=== PATIENT | male | born 1995 | race African-American/Black ===

== ENCOUNTER 2023-02-21 01:27 | Emergency (ER) | payer SELFPAY ==
[2023-02-21 02:24] LABS: #Eosinphils 0.2 10x3/uL (0.0-0.5); #Monocytes 0.7 10x3/uL (0.0-1.1); #Neutrophils 2.6 10x3/uL (1.5-8.4); %Basophils 0.5 % (0.0-2.0); %Eosinophils 3.7 % (0.0-6.0); %Lymphocytes 42.5 % (18.0-47.0); %Monocytes 11.4 % (0.0-10.0); %Neutrophils 41.7 % (40.0-75.0); Hemoglobin 14.7 g/dL (13.5-17.5); Mean Corpuscular Hemoglobin 28.5 pg (27.0-33.0); Mean Corpuscular Volume 86.6 fl (81.2-95.1); Platelet Count 251 10x3/uL (150-450); RBC Distribution Width 12.2 % (11.5-14.5); Red Blood Cell (RBC) Count 5.15 10x6/uL (4.32-5.72); White Blood Cell (WBC) Count 6.2 10x3/uL (3.5-10.5)
[2023-02-21 02:28] LABS: Bilirubin Neg (Negative); Blood, Urine 25 (Negative); Clarity Slightly Cloudy (Clear); Glucose, Urine (Dipstick) Normal (Negative); Ketone, Urine Negative (Negative); Leukocyte 500 (Negative); Nitrite Negative (Negative); Protein, Urine (Dipstick) 30 mg/dl (Neg-Trace)
[2023-02-21 02:29] LABS: ALT (SGPT) 14 U/L (8-55); AST (SGOT) 23 U/L (5-34); Albumin 4.3 g/dL (3.5-5.0); Alkaline Phosphatase 66 U/L (40-110); Anion Gap 13 mmol/L (10-20); BUN (Urea Nitrogen) 10 mg/dL (8.9-20.6); Bilirubin, Total 0.6 mg/dL (0.2-1.2); Calc. Creatinine Clearance 0 mL/min (70-130); Calcium 9.3 mg/dL (7.8-10.44); Carbon Dioxide 26 mmol/L (22-29); Chloride 106 mmol/L (98-107); Estimated GFR 93; Globulin 3.2 g/dL (2.4-3.5); Glucose 87 mg/dL (70-105); Lipase 71 U/L (8-78); Potassium 4.5 mmol/L (3.5-5.1); Protein, Total 7.5 g/dL (6.0-8.3); Sodium 140 mmol/L (136-145)
[2023-02-21 02:42] LABS: Bacteria/HPF 4+ HPF (None Seen); CAUTI Indications for Culture Dysuria,urgency,freq; RBC/HPF 0-3 HPF (0-3); Squamous Epithelial 0-3 HPF (0-3); WBC/HPF Greater than 50 HPF (0-3)
[2023-02-21 02:43] LABS: Urine Culture Reflex Yes Yes
[2023-02-21] MEDS ORDERED: cefTRIAXone (ROCEPHIN) 1 GM VIAL ONE (04:13)
[2023-02-21] MEDS ORDERED: Sterile Water 10 ML ONE (04:14)
[2023-02-21 15:33] LABS: Chlam.trachomatis by PCR,Urine Not Detected (NotDetected); GC N.gonorrhoeae PCR,UrineVOID DETECTED (NotDetected)
== END 2023-02-21 04:26 | disposition home or self-care (01) ==
LOC: CSHERS 01:27
DX: N30.00 Acute cystitis without hematuria (principal); F17.210 Nicotine dependence, cigarettes, uncomplicated
CPT/HCPCS: 80053; 81001; 83690; 85025; 87086; 87491; 87591; 96372; 99284; J0696

== ENCOUNTER 2023-03-12 09:36 | Emergency (ER) | payer SELFPAY ==
[2023-03-12 10:22] LABS: Bilirubin Neg (Negative); Blood, Urine 10 (Negative); Clarity Slightly Cloudy (Clear); Glucose, Urine (Dipstick) Normal (Negative); Ketone, Urine Negative (Negative); Leukocyte 500 (Negative); Nitrite Negative (Negative); Protein, Urine (Dipstick) 15 mg/dl (Neg-Trace); Urobilinogen Normal mg/dL (Less than 2)
[2023-03-12 10:34] LABS: CAUTI Indications for Culture Dysuria,urgency,freq; RBC/HPF 0-3 HPF (0-3); WBC/HPF 21-50 HPF (0-3)
[2023-03-12 10:35] LABS: Squamous Epithelial 0-3 HPF (0-3)
[2023-03-12 10:36] LABS: Bacteria/HPF Rare-Few HPF (None Seen)
[2023-03-12 10:38] LABS: Urine Culture Reflex Yes Yes
[2023-03-12] MEDS ORDERED: Sterile Water 10 ML ONE (11:21)
[2023-03-12] MEDS ORDERED: cefTRIAXone (ROCEPHIN) 500 MG VIAL ONE (11:21)
[2023-03-12 20:03] LABS: Chlam.trachomatis by PCR,Urine Not Detected (NotDetected); GC N.gonorrhoeae PCR,UrineVOID DETECTED (NotDetected)
== END 2023-03-12 11:33 | disposition home or self-care (01) ==
LOC: CSHERS 09:36
DX: A54.01 Gonococcal cystitis and urethritis, unspecified (principal); F17.210 Nicotine dependence, cigarettes, uncomplicated
CPT/HCPCS: 81001; 87086; 87491; 87591; 96372; 99284; J0696

== ENCOUNTER 2023-03-31 22:54 | Emergency (ER) | payer OTHER, SELFPAY ==
[2023-04-01] MEDS ORDERED: Ibuprofen 200 MG TAB ONE (00:53)
[2023-04-01] MEDS ORDERED: Amoxicillin/Potassium Clav 875 MG TAB ONE (00:53)
[2023-04-01] MEDS ORDERED: traMADol HCl 50 MG TAB ONE (00:53)
[2023-04-01] MEDS ORDERED: Boostrix 0.5 ML (Tdap) VIAL (>/=7 yrs of age) ONE (00:54)
== END 2023-04-01 01:35 | disposition home or self-care (01) ==
LOC: CSHERS 22:54
DX: S61.432A Puncture wound without foreign body of left hand, initial encounter (principal); F17.210 Nicotine dependence, cigarettes, uncomplicated; W54.0XXA Bitten by dog, initial encounter
CPT/HCPCS: 90471; 90715